=== PATIENT | female | born 1995 | race Caucasian/White ===

== ENCOUNTER 2017-11-28 16:02 | Emergency (ER) | payer OTHER ==
[2017-11-28 16:42] VITALS: BP 117/75
--- NOTE | 2017-11-28 17:08 | UC ---
Lower Extremity/Ankle HPI - HPI Summary HPI Summary: 22 y/o female presents to the urgent care accompany by mother c/o LF ankle and left foot pain s/p fall at work - History of Current Complaint Chief Complaint: UCLowerExtremity Stated Complaint: LEFT ANKLE INJURY (WC) Time Seen by Provider: 11/28/17 17:01 Hx Obtained From: Patient Hx Last Menstrual Period: 10/01/17 ?: No - Depo shot Onset/Duration: Sudden Onset, Lasting Days - 2 hrs, Still Present Severity Initially: Moderate Severity Currently: Moderate Pain Intensity: 7 Pain Scale Used: 0-10 Numeric Aggravating Factor(s): Standing, Ambulation Alleviating Factor(s): Rest Able to Bear Weight: Yes - Risk Factors Gout Risk Factors: Negative DVT Risk Factors: Negative Septic Arthritis Risk Factor: Negative - Allergies/Home Medications Allergies/Adverse Reactions: Allergies Allergy/AdvReac Type Severity Reaction Status Date / Time No Known Allergies Allergy Unverified 11/28/17 16:32 PMH/Surg Hx/FS Hx/Imm Hx Previously Healthy: Yes - Pt denies PMHX Other History Of: Negative For: Anticoagulant Therapy - Surgical History Surgical History: None - Family History Known Family History: Positive: Diabetes - Social History Occupation: Employed Full-time Lives: With Family Alcohol Use: None Substance Use Type: None Smoking Status (MU): Former Smoker - Immunization History Vaccination Up to Date: Yes Review of Systems Constitutional: Negative Skin: Negative Eyes: Negative ENT: Negative Respiratory: Negative Cardiovascular: Negative Gastrointestinal: Negative Genitourinary: Negative Motor: Negative Neurovascular: Negative Musculoskeletal: Decreased ROM - left ankle, Other: - Left ankle pain and left foot pain s/p fall Neurological: Negative Psychological: Negative Is Patient Immunocompromised?: No All Other Systems Reviewed And Are Negative: Yes Physical Exam - Summary Physical Exam Summary: Vital Signs Reviewed: Yes General: well developed, well nourished obese female, sitting in the examining table w/o any apparent distress Eyes: Positive: Conjunctiva Clear - PERRLA, EOMI, ENT: Positive: Normal ENT inspection, Hearing grossly normal, Pharynx normal, TMs normal Neck: Positive: Supple, Nontender, No Lymphadenopathy Respiratory: Positive: Chest non-tender, Lungs clear, Normal breath sounds, No respiratory distress Cardiovascular: Positive: RRR, No Murmur, Pulses Normal, Brisk Capillary Refill Abdomen Description: Positive: Nontender, No Organomegaly, Soft. Negative: CVA Tenderness (R), CVA Tenderness (L) Bowel Sounds: Positive: Present Musculoskeletal: - Ankle: Pt is able to bear weight and ambulate w/ limping. The LF ankle is without obvious asymmetry or deformity when compared to the R ankle. Decreased ROM due to pain. Mild swelling at the lateral malleolus, with tenderness to palpation. No ecchymosis or bruising observed. Mild Tenderness to palpation over the medial malleolus , no swelling observed. Talar tilt test is negative for ligament laxity to valgus or varus stress. Negative anterior drawer. Peroneal nerve is intact with strong eversion and plantar flexion. Positive sensation over the Rt foot and Rt ankle, positive pulses, capillary refill intact Neurological Exam: Normal Psychological Exam: Normal Skin: warm and dry Triage Information Reviewed: Yes Vital Signs: Initial Vital Signs Temp 98 F 11/28/17 16:33 Pulse 73 11/28/17 16:33 Resp 16 11/28/17 16:33 BP 117/75 11/28/17 16:33 Pulse Ox 99 11/28/17 16:33 Lower Extremity Course/Dx - Differential Dx/Diagnosis Differential Diagnosis/HQI/PQRI: Contusion, Dislocation, Fracture (Closed), Sprain, Strain, Tendonitis Provider Diagnoses: 1- Left ankle and foot pain s/p fall. 2-left ankle sprain Discharge - Discharge Plan Condition: Stable Prescriptions: Ibuprofen TAB* [Motrin TAB* 600 MG] 600 mg PO Q6H PRN #30 tab PRN Reason: Pain Patient Education Materials: Ankle Sprain (DC) Forms: *Work Release Referrals: Mariel Hodges MD [Medical Doctor] - 1 Week Jean Youngblood MD [Primary Care Provider] - 1 Week Additional Instructions: 1-Please take medications as directed to alleviate pain and swelling. 2-Please apply ice, elevate your leg and keep your ankle immobilized with the splint. Avoid weight bearing using the crutches 3- Please f/u with Orthopedic Dr Hodges or your PCP in 1 week is not improvement of symptoms for further evaluation and treatment. - Billing Disposition and Condition Condition: STABLE
--- NOTE | 2017-11-28 17:39 | RAD ---
INDICATION: Left ankle injury. TECHNIQUE: 3 views of the left ankle were obtained. FINDINGS: There is mild diffuse soft tissue swelling. The bones are normal alignment. No fracture is seen. Joint spaces appear maintained. IMPRESSION: SOFT TISSUE SWELLING, NO FRACTURE IS SEEN.
[2017-11-28] MEDS ORDERED: Ibuprofen TAB* 400 MG PO ONE (17:40)
--- NOTE | 2017-11-28 17:41 | RAD ---
INDICATION: Left foot injury. TECHNIQUE: 3 views of the left foot were obtained. FINDINGS: The bones are in normal alignment. No fracture is seen. Joint spaces appear maintained. IMPRESSION: NO EVIDENCE FOR FRACTURE. IF THE PATIENT'S SYMPTOMS PERSIST RECOMMEND FOLLOW-UP IMAGING.
== END 2017-11-28 18:17 | disposition home or self-care (01) ==
LOC: UCEAST 16:02
DX: S93.402A Sprain of unspecified ligament of left ankle, initial encounter (principal); W19.XXXA Unspecified fall, initial encounter; Y93.9 Activity, unspecified; Y92.9 Unspecified place or not applicable; Y99.0 Civilian activity done for income or pay; Z87.891 Personal history of nicotine dependence; Z83.3 Family history of diabetes mellitus
CPT/HCPCS: 99212; A9270-GY; G0463

== ENCOUNTER 2018-09-25 21:01 | Emergency (ER) | payer OTHER ==
--- NOTE | 2018-09-25 21:23 | UC ---
Eye Complaint HPI - HPI Summary HPI Summary: 22 y/o female presents to the urgent care accompany c/o left eye burning, redness and FB sensation s/p welding around 2hrs ago. Pt also c/o headache which started this afternoon, but has worsen w/ the left eye irritation. Pt states she was wearing her protective goggles, but she felt something got in to her eye, she irrigated her eye well w/ water, but she was still w/ a burning sensation. Headache is 4/10. Pt is UTD w/ tetanus vaccines. Pt states also states eye itchiness, but denies photophobia, visual disturbance, dizziness, N/V /D, SOB, chest pain. - History of Current Complaint Stated Complaint: EYE IRRITATION Time Seen by Provider: 09/25/18 21:23 Hx Obtained From: Patient Hx Last Menstrual Period: 10/31/17 ?: No Onset/Duration: Sudden Onset - 2hrs, Lasting Hours - 2hrs Timing: Constant Severity Initially: Mild Severity Currently: Mild Pain Intensity: 4 - BAILEY Pain Scale Used: 0-10 Numeric Location of Injury: Conjunctiva - left eye Character: Foreign Body Sensation Aggravating Factor(s): Blinking - irritation Alleviating Factor(s): Nothing Associated Signs And Symptoms: Positive: Drainage (Clear). Negative: Photophobia, Vision Impairment Bilateral, Fever, Swelling - Risk Factors Penetrating Injury Risk Factor: Negative Globe Rupture Risk Factors: Negative Acute Glaucoma Risk Factors: Negative Optic Artery Occlusion Risk Factors: Negative - Allergies/Home Medications Allergies/Adverse Reactions: Allergies Allergy/AdvReac Type Severity Reaction Status Date / Time No Known Allergies Allergy Unverified 04/12/18 16:14 PMH/Surg Hx/FS Hx/Imm Hx Previously Healthy: Yes Respiratory History: Asthma Other History Of: Negative For: Anticoagulant Therapy - Surgical History Surgical History: None - Family History Known Family History: Positive: Hypertension, Diabetes - Social History Occupation: Employed Full-time Lives: With Family Alcohol Use: None Substance Use Type: None Smoking Status (MU): Former Smoker - Immunization History Hx Tetanus, Diphtheria Vaccination: Yes Vaccination Up to Date: Yes Review of Systems All Other Systems Reviewed And Are Negative: Yes Constitutional: Positive: Negative Skin: Positive: Negative Eyes: Positive: Drainage - clear, Eye Redness - left eye w/ FB sensation irritation. Negative: Photophobia ENT: Positive: Negative Respiratory: Positive: Negative Cardiovascular: Positive: Negative Gastrointestinal: Positive: Negative Genitourinary: Positive: Negative Motor: Positive: Negative Neurovascular: Positive: Negative Musculoskeletal: Positive: Negative Neurological: Positive: Headache Psychological: Positive: Negative Is Patient Immunocompromised?: No Physical Exam - Summary Physical Exam Summary: Vital Signs Reviewed: Yes General: Well appearing, well nourished obese female adolescent in no apparent pain distress Eyes: Positive: B/L Conjunctiva clear Visual acuity: WNL,Visual corona: full to confrontation. PERRLA, EOMI intact w/out limitation or complaint of pain. eyelashes clear. mild tearing and clear drainage observed. No ciliary flush. No chemosis, No photophobia. Normal fundoscopic exam; no proptosis, exophthalmos, nystagmus. No FB observed w/ the naked eye. ENT: Positive: Normal ENT inspection, Hearing grossly normal, Pharynx normal, Nasal congestion, Nasal drainage - clear, TMs normal - B/L external ear canal clear , TM's WNL. Negative: Tonsillar swelling, Tonsillar exudate Neck: Positive: Supple, Nontender, No Lymphadenopathy Respiratory: Positive: Chest nontender, Lungs clear, Normal breath sounds, No respiratory distress Cardiovascular: Positive: RRR, No Murmur, Pulses Normal, Brisk Capillary Refill Abdomen Description: Positive: Nontender, No Organomegaly, Soft. Negative: CVA Tenderness (R), CVA Tenderness (L) Bowel Sounds: Positive: Present Musculoskeletal: Positive: Strength Intact, ROM Intact, No Edema Neurological Exam: Normal Psychological Exam: Normal Skin Exam: Normal Triage Information Reviewed: Yes Eye Complaint Course/Dx - Course Course Of Treatment: 22 y/o female presents to the urgent care accompany c/o left eye burning, redness and FB sensation s/p welding around 2hrs ago. Pt also c/o headache which started this afternoon, but has worsen w/ the left eye irritation. Pt states she was wearing her protective goggles, but she felt something got in to her eye, she irrigated her eye well w/ water, but she was still w/ a burning sensation. Headache is 4/10. Pt is UTD w/ tetanus vaccines. Pt states also states eye itchiness, but denies photophobia, visual disturbance, dizziness, N/V /D, SOB, chest pain. Hx obtained. B/L eye with conjunctiva clear, sclera is white. LF eye w/ clear eye discharge. B/L PERRLA, EOMI w/o any nystagmus or strabismus. Fundi appears benign. Disks are well delineated. There are no hemorrhages or exudates. Visual acuity is 20/20 bilaterally, and visual corona are within normal limits. No foreign body under eyelids observed with naked eye. 2 drops of Tetracaine optha drops placed on Pts left eye, then irrigated with saline drops to flush any foreign particles, then fluorescein instillation and examination with a UV lamp. Positive corneal abrasion observed at 8 oclock. No foreign body identified. After procedure Pt felt better. Pt is UTD w/ Tetanus vaccine. Pt Rx Erythromycin ophthalmic ointment (first dose given at the clinic) and advised to f/u at [facility] [place]. Pt given ibuprofen PO for her BAILEY by nirse. pt tolerated well medication and felt better and pain decrease. Pt understood and agreed w/ plan of care. - Differential Dx/Diagnosis Differential Diagnosis/HQI/PQRI: Conjunctivitis, Corneal Abrasion, Foreign Body , Periorbital Cellulitis Provider Diagnosis: Foreign body of left eye, Corneal abrasion, Headache Discharge - Sign-Out/Discharge Documenting (check all that apply): Patient Departure - d/C home All imaging exams completed and their final reports reviewed: No Studies - Discharge Plan Condition: Stable Disposition: HOME Prescriptions: Erythromycin TOPICAL GEL* [Erythromycin OPTH OINT*] 1 applic TOPICAL TID #1 oint Ibuprofen TAB* [Motrin TAB* 600 MG] 600 mg PO Q6H PRN #30 tab PRN Reason: Headache Patient Education Materials: Corneal Abrasion (DC), Acute Headache (ED) Referrals: Jean Youngblood MD [Primary Care Provider] - 3 Days Jackson Smith MD [Medical Doctor] - 1 Day Additional Instructions: 1-Please apply ophthalmic ointment in your LF eye as directed. 2-F/u w/ superintendent greens Dr Smith tomorrow for further evaluation and treatment on your Corneal abrasion. 3- Take Ibuprofen PO q6-8hrs prn after meals to alleviate headaches. If not improvement, please f/u w/ your PCP for further management - Billing Disposition and Condition Condition: STABLE Disposition: Home
[2018-09-25 21:25] VITALS: BP 122/80
[2018-09-25] MEDS ORDERED: Eye Irrigation Solution 30 ML BOTTLE LEFT EYE ONE (21:26)
[2018-09-25] MEDS ORDERED: Fluorescein Sodium TOPICAL* 1 MG TEST STRIP OPHTHALMIC ONE (21:27)
[2018-09-25] MEDS ORDERED: Tetracaine 0.5% OPTH.SOL 4 ML* 1 DROP BTL LEFT EYE ONE (21:27)
[2018-09-25] MEDS ORDERED: Erythromycin OPTH OINT* APPLIC OINT LEFT EYE ONE ×2 (22:18→22:20)
[2018-09-25] MEDS ORDERED: Ibuprofen TAB* 400 MG PO ONE (22:19)
[2018-09-25] MEDS ORDERED: Erythromycin OPTH OINT* APPLIC OINT ONE (22:22)
== END 2018-09-25 22:35 | disposition home or self-care (01) ==
LOC: UCEAST 21:01
DX: T15.02XA Foreign body in cornea, left eye, initial encounter (principal); X58.XXXA Exposure to other specified factors, initial encounter; Y92.9 Unspecified place or not applicable; R51 Headache; J45.909 Unspecified asthma, uncomplicated; Z87.891 Personal history of nicotine dependence
CPT/HCPCS: 65205; 65220; 99212; A9270-GY; G0463

== ENCOUNTER 2021-04-20 03:47 | Inpatient (IN) ==
[2021-04-20 07:31] LABS: ABS Basophils 0.1 10^3/ul (0-0.2); ABS Eosinophils 0.1 10^3/ul (0-0.6); ABS Lymphocytes 2.4 10^3/ul (1.0-4.8); ABS Monocytes 0.4 10^3/ul (0-0.8); ABS Neutrophils 9.5 10^3/ul (1.5-7.7); Hematocrit 39 % (35-47); Hemoglobin 12.7 g/dL (12.0-16.0); Lymphocyte % 19.2 %; Mean Corpuscular HGB Conc 33 g/dL (31-36); Mean Corpuscular Hemoglobin 24 pg (27-31); Mean Corpuscular Volume 73 fL (80-97); Mean Platelet Volume 8.3 fL (7.4-10.4); Platelet Count 408 10^3/uL (150-450); Red Blood Count 5.38 10^6 /uL (3.70-4.87); Red Cell Distribution Width 16 % (10-15); White Blood Count 12.5 10^3/uL (3.5-10.8)
[2021-04-20 07:36] LABS: Albumin 4.7 g/dL (3.2-5.2); Albumin/Globulin Ratio 1.2 (1-3); Calcium 10.1 mg/dL (8.6-10.3); Globulin 3.8 g/dL (2-4); Potassium 4.2 mmol/L (3.5-5.0); Total Bilirubin 1.7 mg/dL (0.2-1.0); Total Protein 8.5 g/dL (6.4-8.9)
[2021-04-20] MEDS ORDERED: Lactated Ringers 1000 ml BAG 1,000 ML IV ONE ×2 (08:46→08:57)
[2021-04-20] MEDS ORDERED: Morphine 4 MG/ML VIAL (1 ml) IV ONE (08:46)
[2021-04-20] MEDS ORDERED: Ondansetron 4 mg VIAL 2 MG/ML 2 ml VIAL IV ONE (08:46)
[2021-04-20] MEDS ORDERED: Piperacillin/Tazobac ADVAN 3.375 GM in NS 0.9% 100 ml BAG 100 ML IV ONE (08:56)
[2021-04-20] MEDS ORDERED: oxyCODONE/Acetamin 5/325 mg TAB PO PRN (10:14)
[2021-04-20] MEDS ORDERED: Ondansetron 4 mg VIAL 2 MG/ML 2 ml VIAL IV PRN (10:14)
[2021-04-20] MEDS ORDERED: HYDROmorphone 0.5 MG/0.5 ML SYRINGE IV SLOW PU PRN (10:14)
[2021-04-20 10:55] LABS: Rapid COVID-19 Molecular Undetected (Undetected)
[2021-04-20 13:51] LABS: Urine Appearance Clear; Urine Bilirubin Negative (Negative); Urine Blood 3+ (Negative); Urine Color Yellow; Urine Glucose Negative (Negative); Urine Ketones Negative (Negative); Urine Nitrite Negative (Negative); Urine Protein Negative (Negative); Urine Specific Gravity 1.017 (1.002-1.030); Urine Urobilinogen Negative (Negative)
[2021-04-20 13:55] LABS: Urine Bacteria 1+ (Absent); Urine Red Blood Cell 3+(>10/hpf) (Absent); Urine Squamous Epithelial Cell Present (Absent); Urine White Blood Cell Trace(0-5/hpf) (Absent)
[2021-04-20] MEDS: Piperacillin/Tazobactam VIAL 3.375 GM in NS 0.9% 100 ml BAG 100 ML IVPB SCH ×2 (15:13→22:13)
[2021-04-20 15:21] LABS: ABS Basophils 0.1 10^3/ul (0-0.2); ABS Eosinophils 0.2 10^3/ul (0-0.6); ABS Lymphocytes 3.3 10^3/ul (1.0-4.8); ABS Monocytes 0.5 10^3/ul (0-0.8); ABS Neutrophils 4.7 10^3/ul (1.5-7.7); Eosinophil % 2.7 %; Hematocrit 34 % (35-47); Hemoglobin 10.9 g/dL (12.0-16.0); Lymphocyte % 37.8 %; Mean Corpuscular HGB Conc 32 g/dL (31-36); Mean Corpuscular Hemoglobin 24 pg (27-31); Mean Corpuscular Volume 73 fL (80-97); Mean Platelet Volume 7.8 fL (7.4-10.4); Platelet Count 290 10^3/uL (150-450); Red Blood Count 4.63 10^6 /uL (3.70-4.87); Red Cell Distribution Width 16 % (10-15); White Blood Count 8.8 10^3/uL (3.5-10.8)
[2021-04-20 15:54] LABS: Albumin 3.9 g/dL (3.2-5.2); Albumin/Globulin Ratio 1.4 (1-3); Calcium 9.1 mg/dL (8.6-10.3); Globulin 2.7 g/dL (2-4); Potassium 3.5 mmol/L (3.5-5.0); Total Bilirubin 2.2 mg/dL (0.2-1.0); Total Protein 6.6 g/dL (6.4-8.9)
[2021-04-20] MEDS: NS 0.9% 1000 ml BAG 1,000 ML IV SCH (18:30)
[2021-04-20] MEDS ORDERED: NS 0.9% 1,000 ML IV ONE (20:00)
[2021-04-21] MEDS ORDERED: Lactated Ringers 1000 ml BAG 1,000 ML IV SCH (00:01)
[2021-04-21] MEDS: Piperacillin/Tazobactam VIAL 3.375 GM in NS 0.9% 100 ml BAG 100 ML IVPB SCH ×2 (05:31→14:44)
[2021-04-21 06:59] LABS: ABS Basophils 0.1 10^3/ul (0-0.2); ABS Eosinophils 0.3 10^3/ul (0-0.6); ABS Lymphocytes 2.6 10^3/ul (1.0-4.8); ABS Monocytes 0.4 10^3/ul (0-0.8); ABS Neutrophils 3.8 10^3/ul (1.5-7.7); Eosinophil % 4.3 %; Hematocrit 32 % (35-47); Hemoglobin 10.6 g/dL (12.0-16.0); Lymphocyte % 35.7 %; Mean Corpuscular HGB Conc 33 g/dL (31-36); Mean Corpuscular Hemoglobin 24 pg (27-31); Mean Corpuscular Volume 74 fL (80-97); Mean Platelet Volume 7.9 fL (7.4-10.4); Platelet Count 272 10^3/uL (150-450); Red Blood Count 4.36 10^6 /uL (3.70-4.87); Red Cell Distribution Width 16 % (10-15); White Blood Count 7.2 10^3/uL (3.5-10.8)
[2021-04-21 07:12] LABS: Albumin 3.6 g/dL (3.2-5.2); Albumin/Globulin Ratio 1.3 (1-3); C Reactive Protein 17.04 mg/L (<8.01); Direct Bilirubin 1.5 mg/dL (0.03-0.18); Globulin 2.8 g/dL (2-4); Indirect Bilirubin 1.3 mg/dL (0.3-1.0); Magnesium 1.8 mg/dL (1.9-2.7); Phosphorus 4.9 mg/dL (2.5-5.0); Total Bilirubin 2.8 mg/dL (0.2-1.0); Total Protein 6.4 g/dL (6.4-8.9)
[2021-04-21] MEDS: NS 0.9% 1000 ml BAG 1,000 ML IV SCH ×2 (07:12→23:34)
[2021-04-21] MEDS ORDERED: Flu vaccine *QUAD* 2021-22* 0.5 ML SYRINGE IM ONE (09:00)
[2021-04-22] MEDS: Piperacillin/Tazobactam VIAL 3.375 GM in NS 0.9% 100 ml BAG 100 ML IVPB SCH (01:39)
[2021-04-22] MEDS: NS 0.9% 1000 ml BAG 1,000 ML IV SCH (07:53)
[2021-04-22] MEDS ORDERED: Flu vaccine *QUAD* 2021-22* 0.5 ML SYRINGE IM ONE (09:00)
[2021-04-22] MEDS ORDERED: Piperacillin/Tazobactam VIAL 3.375 GM in NS 0.9% 100 ml BAG 100 ML IVPB SCH (10:00)
[2021-04-22] MEDS ORDERED: Propofol 10 MG/ML 20 ML BTL ONE (14:39)
[2021-04-22] MEDS ORDERED: Rocuronium 50 mg VIAL 10 mg/ml 5 ml VIAL (50 mg) ONE (14:39)
[2021-04-22] MEDS ORDERED: fentaNYL 250 mcg/5 ml 50 MCG/ML 5 ml VIAL (250 MCG) ONE (14:39)
[2021-04-22] MEDS ORDERED: Dexamethasone IV 4 MG/ML VIAL 1 ml VIAL ONE (14:39)
[2021-04-22] MEDS ORDERED: Midazolam 2 mg/2 ml VIAL 1 mg/ml 2 ml VIAL (2 mg) ONE (14:39)
[2021-04-22] MEDS ORDERED: Lidocaine 2% PF 5 ML VIAL ONE (14:39)
[2021-04-22] MEDS ORDERED: Ondansetron 4 mg VIAL 2 MG/ML 2 ml VIAL ONE ×2 (14:39→17:35)
[2021-04-22] MEDS ORDERED: Piperacillin/Tazobac 3.375 GM BAG ONE (15:16)
[2021-04-22] MEDS ORDERED: Lidocaine 1% w EPI 1:200,000 SDV 30 ML VIAL ONE (15:21)
[2021-04-22] MEDS ORDERED: Bupivacaine 0.5% SDV PF 30ML VIAL ONE (15:22)
[2021-04-22] MEDS ORDERED: EPHEDrine (Pressors) 50 MG/ML VIAL ONE (15:40)
[2021-04-22] MEDS ORDERED: Naloxone 0.4 mg VIAL 0.4 mg/ml 1 ml VIAL IV PRN (16:13)
[2021-04-22] MEDS ORDERED: fentaNYL 100 mcg/2 ml 50 MCG/ML VIAL IV PRN (16:13)
[2021-04-22] MEDS ORDERED: Ondansetron 4 mg VIAL 2 MG/ML 2 ml VIAL IV PRN (16:13)
[2021-04-22 17:40] VITALS: BP 131/74
[2021-04-22] MEDS ORDERED: fentaNYL 100 mcg/2 ml 50 MCG/ML VIAL ONE (17:50)
== END 2021-04-22 18:35 | disposition home or self-care (01) | DRG 263 ==
LOC: ED 03:47 → SSU 13:42
PROVIDERS: ADMIT Registered Nurse Registered Nurse First Assistant; ATTEND Registered Nurse Registered Nurse First Assistant